=== PATIENT | male | born 1995 | race Caucasian/White ===

== ENCOUNTER 2016-08-25 20:17 | Emergency (ER) | payer OTHER, SELFPAY ==
[2016-08-25] MEDS ORDERED: Diphtheria,Pertussis(Acell),Tetanus Vaccine 0.5 ML SDV inactive IM ONE (20:29)
[2016-08-25] MEDS ORDERED: Lidocaine 1% 50 ML MDV INJECT ONE (20:29)
[2016-08-25 20:34] VITALS: BP 136/76
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
[2016-08-25] MEDS ORDERED: Doxycycline 100 MG Cap PO ONE (23:12)
== END 2016-08-25 23:30 | disposition home or self-care (01) ==
LOC: JD.ED 20:17
DX: S21.111A Laceration without foreign body of right front wall of thorax without penetration into thoracic cavity, initial encounter (principal); S11.91XA Laceration without foreign body of unspecified part of neck, initial encounter; S41.111A Laceration without foreign body of right upper arm, initial encounter; S21.212A Laceration without foreign body of left back wall of thorax without penetration into thoracic cavity, initial encounter; V86.59XA Driver of other special all-terrain or other off-road motor vehicle injured in nontraffic accident, initial encounter
CPT/HCPCS: 12005; 90471; 99284; A9270; 90715; 99283-25